=== PATIENT | male | born 1955 | race Caucasian/White ===

== ENCOUNTER 2020-01-27 10:06 | Outpatient (REF) | payer OTHER, SELFPAY ==
[2020-01-27 11:19] LABS: MANUAL DIFF FLAG NO
[2020-01-27 11:24] LABS: Basophils Absolute Auto 0.1 X10*3/uL (0.0-0.2); Basophils Percent Auto 0.6 % (0-2); Eosinophils Absolute Auto 0.2 X10*3/uL (0.0-0.4); Eosinophils Percent Auto 2.1 % (0-4); Hematocrit 45.3 % (42-52); Hemoglobin 15.4 g/dl (14.0-18.0); Imm Gran Abs Auto 0.03 X10*3/uL (0.00-0.03); Imm Gran Pct Auto 0.3 % (0.0-0.4); Lymphocytes Absolute Auto 1.7 X10*3/uL (1.2-4.9); Lymphocytes Percent Auto 19.4 % (20-40); Mean Corpuscular Hemoglobin 30.1 pg (27.0-33.0); Mean Corpuscular Volume 88.5 fL (80-98); Mean Platelet Volume 12.1 fL (9.4-12.4); Monocytes Absolute Auto 0.7 X10*3/uL (0.1-1.2); Monocytes Percent Auto 8.4 % (2-11); Neutrophils Percent Auto 69.2 % (45-73); Platelet Count 216 X10*3/uL (160-400); Red Blood Count 5.12 X10*6/uL (4.60-5.80); Red Cell Distribution Width 13.7 % (11.0-16.0); White Blood Count 8.6 X10*3/uL (4.8-10.8)
[2020-01-27 11:54] LABS: Alanine Aminotransferase 20 U/L (0-40); Albumin Level 4.1 g/dL (3.5-5.0); Alkaline Phosphatase 87 U/L (39-117); Anion Gap 12 (12-20); Aspartate Amino Transferase 21 U/L (5-37); Bilirubin Total 0.7 mg/dL (0.0-1.0); Blood Urea Nitrogen 20 mg/dL (9-16); Calcium 8.8 mg/dL (8.4-10.2); Carbon Dioxide 31 mmol/L (22-29); Chloride 101 mmol/L (96-108); Cholesterol 238 mg/dL; Estimated Glomerular Filt Rate > 60; Glucose Random 90 mg/dL (60-115); HDL Cholesterol 41 mg/dL; LDL Cholesterol Calculated 154 mg/dl; Potassium 3.6 mmol/l (3.3-5.1); Sodium 140 mmol/L (135-145); Total Protein 7.3 g/dL (6.5-8.0); Triglycerides 219 mg/dL
[2020-01-27 12:14] LABS: Folate 14.7 ng/mL (> or = 4.0); Vitamin B12 601 pg/mL (200-900)
[2020-01-27 12:16] LABS: Free T4 (Free Thyroxine) 1.01 ng/dL (0.71-1.85); Prostate Specific Antigen Scr 1.31 ng/mL (<0.05-4.0); Thyroid Stimulating Hormone 1.83 uIU/mL (0.32-4.0)
== END 2020-01-27 10:07 | disposition home or self-care (01) ==
LOC: HO.HMGCLDS 10:06
PROVIDERS: PCP Internal Medicine; Visit Provider Internal Medicine
DX: E78.00 Pure hypercholesterolemia, unspecified (principal); I10 Essential (primary) hypertension
CPT/HCPCS: 36415; 80053; 80061; 82607; 82746; 84153; 84439; 84443; 85025

== ENCOUNTER 2020-07-24 09:21 | Day surgery (SDC) | payer OTHER, SELFPAY ==
[2020-07-17 14:17] VITALS: BMI 31.2
--- NOTE | 2020-07-19 12:16 | P.CONAN_ITS ---
HPI - Anesthesia Eval Consult details Narrative: 65yo M for Colonoscopy PMFSH Active Problems Active Problems: All Active Problems (Updated 07/17/20 @ 14:19 by Alaina Henry) Annual physical exam (Acute) Colon cancer screening (Acute) Hypercholesterolemia (Acute) Hypertension (Acute) Obesity (BMI 30-39.9) (Acute) Past Medical History Medical History (Updated 07/17/20 @ 14:19 by Alaina Henry) Cholelithiasis COVID-19 vaccine administered Fatty liver History of renal calculi Hypercholesterolemia Hypertension Obesity (BMI 30-39.9) Family History Family History (Updated 01/10/20 @ 12:21 by Patricia Gregg Vega) Father Bladder cancer Hypertension Mother CVD (cardiovascular disease) Surgical History Surgical History (Updated 07/17/20 @ 14:18 by Alaina Henry) H/O colonoscopy History of inguinal hernia repair Social History Social History (Updated 01/13/20 @ 09:35 by Yaneth Dickey MD) Are you a primary health care legal assistant to a significant other at home: No Do you presently have visiting nurse or other home services: No Alcohol intake: never Use of substances other than those prescribed or required for medical reasons: No Have you been hit, kicked, punched, or otherwise hurt by someone within the past year? If so, by whom?: No Are you DNR?: No Advance Directives Information Provided: No Recently lost weight without trying: No Eating poorly because of decreased appetite: No Nutrition Risks: No Nutritional Risk Poor oral hygiene: No Meds Allergies Allergy/AdvReac Type Severity Reaction Status Date / Time atorvastatin [Lipitor] Allergy Intermediate myalgia, Verified 07/17/20 14:21 dizziness Home Medications Medication Instructions Recorded Confirmed Last Taken Type cholecalciferol (vitamin D3) 25 25 mcg PO DAILY 01/13/20 07/17/20 Unknown H istory mcg (1,000 unit) capsule multivitamin 1 tab PO DAILY 01/13/20 07/17/20 Unknown History Exam Exam Date and Time: July 19, 2020 1216 Height,Weight and Vital Signs: Height 6 ft 1 in Weight 107.501 kg Assessment and Plan Assessment Anesthesia Assessment: Chart Reviewed
[2020-07-24 09:38] VITALS: BP 170/93; PULSE 86; RESP 16; TEMP 36.6; O2SAT 97
[2020-07-24] MEDS: Lactated Ringers 1,000 ML 100 ML IVCONT (09:48)
--- NOTE | 2020-07-24 09:57 | MHC.SHP ---
Pre-Procedural Eval Section A The patient is an INPATIENT: No Changes since office visit: No Cold of Flu in the past 2 weeks, No New Medical Problems, No Changes in Medication and No Patient answered all questions The History & Physical has been completed within 30 days and I have reviewed it.: Yes Section B Chief Complaint: screening Allergies: Allergies Allergy/AdvReac Type Severity Reaction Status Date / Time atorvastatin [Lipitor] Allergy Intermediate myalgia, Verified 07/17/20 14:21 dizziness Plan I have reviewed the history and physical and performed a pertinent physical examination on my patient. No changes have occurred unless specified.
--- NOTE | 2020-07-24 10:29 | PM.OP ---
Brief Operative Note Date of Service: 07/24/20 Pre-op diagnosis: screening Post-op diagnosis: same Surgeon: Terell Mckeon Anesthesia: MAC Was an Ornamental Machine Operator used for this Procedure?: No Estimated blood loss (mL): 0 Pathology: none sent Condition: stable Disposition: PACU
[2020-07-24 10:32] VITALS: BP 97/60; PULSE 66; RESP 16; TEMP 36.4; O2SAT 95
[2020-07-24 10:47] VITALS: BP 122/74; PULSE 64; RESP 17; TEMP 36.4; O2SAT 96
--- NOTE | 2020-07-24 20:39 | OP_ITS ---
SURGEON: Terell Mckeon MD INDICATIONS: Colon cancer screening. PREOPERATIVE DIAGNOSIS: POSTOPERATIVE DIAGNOSIS: PROCEDURE PERFORMED: Colonoscopy to the terminal ileum. ESTIMATED BLOOD LOSS: COMPLICATIONS: ANESTHESIA: ASSISTANTS: SPECIMENS: MEDICATIONS: Monitored anesthesia care. DESCRIPTION OF PROCEDURE: History and physical performed. The risks and benefits of the procedure were explained to the patient. Informed consent was obtained. The patient was placed in the left lateral decubitus position. A digital rectal exam was performed and was found to be normal. The Olympus pediatric video colonoscope was introduced into the rectum and advanced to the cecum without difficulty. The cecum was identified by transillumination, palpation, and identification of ileocecal valve. Examination was performed and the scope was removed. He tolerated the procedure well and was taken to recovery area in stable condition. FINDINGS: The terminal ileum was normal. The visualized colonic mucosa was normal. The quality of the prep was good. No polyps were identified. There was mild sigmoid diverticulosis with scattered diverticulosis in the descending colon as well. Retroflexed examination showed large internal hemorrhoids. IMPRESSION: Normal colonoscopy, diverticulosis. RECOMMENDATIONS: 1. Follow up as needed. 2. Repeat colonoscopy is recommended in 10 years for average risk individuals. MD IONA Pascual/ABDULAZIZ / [phone]
== END 2020-07-24 11:04 | disposition home or self-care (01) ==
PROVIDERS: PCP Internal Medicine; Visit Provider Internal Medicine Gastroenterology
PROC: 0DJD8ZZ Inspection of Lower Intestinal Tract, Via Natural or Artificial Opening Endoscopic (ICD-10-PCS; CPT 45378; principal; 2020-07-24 10:30)
DX: Z12.11 Encounter for screening for malignant neoplasm of colon (principal); K57.30 Diverticulosis of large intestine without perforation or abscess without bleeding; K64.8 Other hemorrhoids; K76.0 Fatty (change of) liver, not elsewhere classified; I10 Essential (primary) hypertension; E78.00 Pure hypercholesterolemia, unspecified; Z79.899 Other long term (current) drug therapy; Z87.442 Personal history of urinary calculi
CPT/HCPCS: 45378

== ENCOUNTER 2021-05-29 09:15 | Outpatient (REF) | payer OTHER, SELFPAY ==
[2021-05-29 11:23] LABS: MANUAL DIFF FLAG NO
[2021-05-29 11:44] LABS: Basophils Absolute Auto 0.1 X10*3/uL (0.0-0.2); Eosinophils Absolute Auto 0.1 X10*3/uL (0.0-0.4); Eosinophils Percent Auto 2.1 % (0-4); Hematocrit 44.1 % (42.0-52.0); Hemoglobin 15.4 g/dl (14.0-18.0); Imm Gran Abs Auto 0.01 X10*3/uL (0.00-0.03); Imm Gran Pct Auto 0.2 % (0.0-0.4); Lymphocytes Absolute Auto 1.6 X10*3/uL (1.2-4.9); Lymphocytes Percent Auto 26.1 % (20-40); Mean Corpuscular HGB Conc 34.9 g/dl (31.0-36.0); Mean Corpuscular Hemoglobin 30.8 pg (27.0-33.0); Mean Corpuscular Volume 88.2 fL (80.0-98.0); Mean Platelet Volume 12.6 fL (9.4-12.4); Monocytes Absolute Auto 0.6 X10*3/uL (0.1-1.2); Monocytes Percent Auto 9.6 % (2-11); Neutrophils Absolute Auto 3.8 x10*3/uL (2.0-8.3); Platelet Count 221 X10*3/uL (160-400); White Blood Count 6.3 X10*3/uL (4.8-10.8)
[2021-05-29 11:55] LABS: Alanine Aminotransferase 21 U/L (0-40); Albumin Level 4.1 g/dL (3.5-5.0); Alkaline Phosphatase 80 U/L (39-117); Anion Gap 11 (12-20); Aspartate Amino Transferase 22 U/L (5-37); Bilirubin Total 0.5 mg/dL (0.0-1.0); Blood Urea Nitrogen 18 mg/dL (9-16); Calcium 9.4 mg/dL (8.4-10.2); Carbon Dioxide 31 mmol/L (22-29); Chloride 101 mmol/L (96-108); Cholesterol 225 mg/dL; Estimated Glomerular Filt Rate > 60; Glucose Random 94 mg/dL (60-115); HDL Cholesterol 43 mg/dL; LDL Cholesterol Calculated 166 mg/dl; Potassium 3.4 mmol/L (3.3-5.1); Sodium 140 mmol/L (135-145); Total Protein 7.3 g/dL (6.5-8.0); Triglycerides 84 mg/dL
[2021-05-29 12:12] LABS: Free T4 (Free Thyroxine) 1.21 ng/dL (0.71-1.85); Prostate Specific Antigen Scr 1.27 ng/mL (<0.05-4.0); Thyroid Stimulating Hormone 2.25 uIU/mL (0.32-4.0)
[2021-05-29 12:27] LABS: Folate 18.1 ng/mL (> or = 4.0); Vitamin B12 596 pg/mL (200-900)
== END 2021-05-29 09:16 | disposition home or self-care (01) ==
LOC: HO.HMGCLDS 09:15
PROVIDERS: Visit Provider Internal Medicine
DX: I10 Essential (primary) hypertension (principal); E78.00 Pure hypercholesterolemia, unspecified; Z12.5 Encounter for screening for malignant neoplasm of prostate
CPT/HCPCS: 36415; 80053; 80061; 82607; 82746; 84153; 84439; 84443; 85025

== ENCOUNTER 2022-02-14 13:02 | Emergency (ER) | payer MEDICARE, SELFPAY ==
[2022-02-14 13:13] VITALS: BP 172/83; PULSE 100; RESP 18; TEMP 36.8; O2SAT 98; BMI 30.3
--- NOTE | 2022-02-14 13:15 | ED.GENADULT ---
HPI - General Adult General Chief complaint: General Medical <JOSELYN Dinero - Last Filed: 02/14/22 13:18> Stated complaint: pain in R side <JOSELYN Dinero - Last Filed: 02/14/22 13:18> Time Seen by Provider: 02/14/22 15:40 <JOSELYN Dinero - Last Filed: 02/14/22 13:18> Source: patient <Jaylin Hernandez MD - Last Filed: 02/14/22 17:13> Mode of arrival: ambulatory <Jaylin Hernandez MD - Last Filed: 02/14/22 17:13> History of Present Illness HPI narrative: 67-year-old male who presents with complaints of right posterior back pain as well as urinary symptoms but denies any nausea, vomiting, fever, chills and states that he is just recently completed a course of cefuroxime as well as treatment for suspected renal colic through [facility]. Patient also states that he has been experiencing some dizziness 1st thing in the morning but suspects that this is secondary to the Flomax that he takes at night before bed. <Jaylin Hernandez MD - Last Filed: 02/14/22 17:13> Related Data Home medications: Home Medications Medication Instructions Recorded Confirmed cholecalciferol (vitamin D3) 25 25 mcg PO DAILY 01/13/20 05/17/21 mcg (1,000 unit) capsule multivitamin 1 tab PO DAILY 01/13/20 05/17/21 Previous Rx's Medication Instructions Recorded hydrochlorothiazide 25 mg tablet 25 mg PO DAILY #90 tabs 05/17/21 nirmatrelvir 300 mg (150 mg See Rx Instructions PO .COMPLEX 06/19/21 x2)-ritonavir 100 mg tablet,dose #30 tabs pack(EUA) (Paxlovid) cefuroxime axetil 250 mg tablet 250 mg PO BID 7 days #14 tabs 02/04/22 prednisone 20 mg tablet 20 mg PO DAILY 5 days #5 tabs 02/04/22 tamsulosin 0.4 mg capsule (Flomax) 0.4 mg PO DAILY #14 caps 02/04/22 cefdinir 300 mg capsule 300 mg PO BID 7 days #14 caps 02/14/22 <JOSELYN Dinero - Last Filed: 02/14/22 13:18> Allergies/adverse reactions: Allergies Allergy/AdvReac Type Severity Reaction Status Date / Time atorvastatin [Lipitor] Allergy Intermediate myalgia, Verified 05/17/21 16:15 dizziness <JOSELYN Dinero - Last Filed: 02/14/22 13:18> Review of Systems Review of Systems: Pertinent positives and negatives as stated in HPI 10 point review systems is otherwise negative. <Jaylin Hernandez MD - Last Filed: 02/14/22 17:13> [facility] Past Medical History Source: nursing notes reviewed <Jaylin Hernandez MD - Last Filed: 02/14/22 17:13> Medical History: Medical History Cholelithiasis COVID-19 vaccine administered Fatty liver History of renal calculi Hypercholesterolemia Hypertension Obesity (BMI 30-39.9) <JOSELYN Dinero - Last Filed: 02/14/22 13:18> Surgical History: Surgical History H/O colonoscopy History of inguinal hernia repair <JOSELYN Dinero - Last Filed: 02/14/22 13:18> Family History Family History: Family History Father Bladder cancer Hypertension Mother CVD (cardiovascular disease) <JOSELYN Dinero - Last Filed: 02/14/22 13:18> Social History Social History: Social History Housing: House Are you a primary personal carer to a significant other at home: No Do you presently have visiting nurse or other home services: No Alcohol intake: never Patient Tobacco Use Status: Never used Tobacco e-Cigarette/Vaping Use: Never Used Second Hand Smoke Exposure: No Advance Directives: No Advance Directives Information Provided: Yes Current occupational status: retired Cognitive needs: No Hearing needs: No Vision needs: Yes <JOSELYN Dinero - Last Filed: 02/14/22 13:18> Physical Exam ED Vital Signs: Vital Signs - 24 hr 02/14/22 13:13 02/14/22 15:56 Temperature 98.2 F 98.4 F Pulse Rate 100 96 Respiratory Rate 18 16 Blood Pressure 172/83 H 143/93 H Pulse Oximetry 98 98 Oxygen Delivery Method Room Air Room Air BMI result Body Mass Index 30.3 <JOSELYN Dinero - Last Filed: 02/14/22 13:18> Vital Signs - 24 hr 02/14/22 13:13 02/14/22 15:56 Temperature 98.2 F 98.4 F Pulse Rate 100 96 Respiratory Rate 18 16 Blood Pressure 172/83 H 143/93 H Pulse Oximetry 98 98 Oxygen Delivery Method Room Air Room Air BMI result Body Mass Index 30.3 VITAL SIGNS: Reviewed. GENERAL: Well developed, well nourished, in no acute distress. HEAD: Normocephalic/atraumatic EYES: PERRLA, EOMI EARS: Ext canals without abnormality OROPHARYNX: no oral lesions noted, posterior pharynx clear LUNGS: Normal breath sounds. No adventitious sounds or accessory muscle use. SpO2<98> CARDIOVASCULAR: Regular rate and rhythm without noted murmur ABDOMEN: Soft, non-tender, non-distended with bowel sounds, CVA tenderness MUSCULOSKELETAL: No tenderness, deformities, or effusions noted on gross inspection. EXTREMITIES: No cyanosis, clubbing or edema. SKIN: Inspection of the skin reveals no rashes NEUROLOGIC: Alert and oriented x 4. Strength and sensation to light touch were grossly intact x 4. <Jaylin Hernandez MD - Last Filed: 02/14/22 17:13> Course Course Course Narrative: RME - 67 yo male with history of kidney stones 30 years ago presents to the ER with intermittent right flank pain for the last 5 days. He had acute painless hematuria on 02/04, seen at [facility] and treated with prednisone, flomax and abx. Told his urine had no infection but he may have a kidney stone. No fever, chills, N/V and no urinary symptoms. He has been dizzy the last few mornings and having some generalized weakness as well. BP elevated 170s systolic but he appears well, no distress. Labs and dry CT ordered. Plan per provider in the Main ED. <JOSELYN Dinero - Last Filed: 02/14/22 13:18> RME - 67 yo male with history of kidney stones 30 years ago presents to the ER with intermittent right flank pain for the last 5 days. He had acute painless hematuria on 02/04, seen at [facility] and treated with prednisone, flomax and abx. Told his urine had no infection but he may have a kidney stone. No fever, chills, N/V and no urinary symptoms. He has been dizzy the last few mornings and having some generalized weakness as well. BP elevated 170s systolic but he appears well, no distress. Labs and dry CT ordered. Plan per provider in the Main ED. 67-year-old male with history and clinical presentation after review of all investigations appears to be a possible mild pyelonephritis, as patient persists in having leukocyte esterase and white blood cell in his urine as well as CVA pain/tenderness. There are no findings on clinical exam or labs to suggest cholecystitis or pancreatitis let alone pneumonia. All results discussed with him at bedside and he will be discharged home on cefdinir for 1 week. <Jaylin Hernandez MD - Last Filed: 02/14/22 17:13> Medical Decision Making Medical Decision Making [facility] Narrative: 67-year-old male with history and clinical presentation consistent with intermittent right flank pain started on Thursday. <Jaylin Hernandez MD - Last Filed: 02/14/22 17:13> Differential Diagnosis Differential Diagnoses: The differential diagnosis associated with the presentation includes <Jaylin Hernandez MD - Last Filed: 02/14/22 17:13> Renal colic, cholecystitis, pyelonephritis, <Jaylin Hernandez MD - Last Filed: 02/14/22 17:13> Lab Data [facility] Lab Attestation statement: I reviewed the patient's lab results. <Jaylin Hernandez MD - Last Filed: 02/14/22 17:13> Result Diagrams: : 02/14/22 13:39 02/14/22 13:39 <JOSELYN Dinero - Last Filed: 02/14/22 13:18> Labs: Lab Results 02/14/22 02/14/22 02/14/22 Range/Units 13:39 13:39 13:41 WBC 7.2 (4.8-10.8) X10*3/uL RBC 5.20 (4.60-5.80) X10*6/uL Hgb 15.6 (14.0-18.0) g/dl Hct 46.2 (42.0-52.0) % MCV 88.8 (80.0-98.0) fL MCH 30.0 (27.0-33.0) pg MCHC 33.8 (31.0-36.0) g/dl RDW 13.2 (11.0-16.0) % Plt Count 261 (160-400) X10*3/uL MPV 10.9 (9.4-12.4) fL Immature Gran % (Auto) 0.4 (0.0-0.4) % Neut % (Auto) 78.2 H (45-73) % Lymph % (Auto) 14.9 L (20-40) % [place] % (Auto) 5.7 (2-11) % Eos % (Auto) 0.1 (0-4) % Baso % (Auto) 0.7 (0-2) % Lymph # (Auto) 1.1 L (1.2-4.9) X10*3/uL [place] # (Auto) 0.4 (0.1-1.2) X10*3/uL Eos # (Auto) 0.0 (0.0-0.4) X10*3/uL Baso # (Auto) 0.1 (0.0-0.2) X10*3/uL Abs Immat Gran (auto) 0.03 (0.00-0.03) X10*3/uL Absolute Neuts (auto) 5.7 (2.0-8.3) x10*3/uL Absolute Nucleated RBC 0.000 (0.0-0.012) X10*3/uL Nucleated RBC % (auto) 0.0 (0.0-0.2) /100WBC Sodium 138 (135-145) mmol/L Potassium 3.8 (3.3-5.1) mmol/L Chloride 102 (96-108) mmol/L Carbon Dioxide 27 (22-29) mmol/L Anion Gap 13 (12-20) BUN 20 H (9-16) mg/dL Creatinine 1.26 (0.5-1.4) mg/dL Estim Creat Clear Calc 71.1 Estimated GFR 57 Random Glucose 138 H (60-115) mg/dL Calcium 9.2 (8.4-10.2) mg/dL Magnesium 2.0 (1.6-2.6) mg/dL Total Bilirubin 0.3 (0.0-1.0) mg/dL Direct Bilirubin < 0.2 (0.0-0.5) mg/dL AST 22 (5-37) U/L ALT 26 (0-40) U/L Alkaline Phosphatase 91 (39-117) U/L Total Protein 7.1 (6.5-8.0) g/dL Albumin 3.9 (3.5-5.0) g/dL Urine Color Yellow Urine Appearance Clear Urine pH 7.5 (5.0-9.0) Ur Specific [place] 1.020 (1.005-1.025) Urine Protein Trace (Neg-Trace) mg/dL Urine Glucose (UA) Negative (Negative) mg/dL Urine Ketones Negative (Negative) mg/dL Urine Blood Negative (Negative) Urine Nitrite Negative (Negative) Ur Leukocyte Esterase Small (1+) H (Negative) Urine RBC 0-2 (0-2) /HPF Urine WBC 21-50 H (0-5) /HPF Ur Squamous Epith Cells 6-10 (0-2) /HPF Urine Bacteria None Seen (None Seen) Hyaline Casts 0-2 (0-2) /LPF <JOSELYN Dinero - Last Filed: 02/14/22 13:18> Lab Results 02/14/22 02/14/22 02/14/22 Range/Units 13:39 13:39 13:41 WBC 7.2 (4.8-10.8) X10*3/uL RBC 5.20 (4.60-5.80) X10*6/uL Hgb 15.6 (14.0-18.0) g/dl Hct 46.2 (42.0-52.0) % MCV 88.8 (80.0-98.0) fL MCH 30.0 (27.0-33.0) pg MCHC 33.8 (31.0-36.0) g/dl RDW 13.2 (11.0-16.0) % Plt Count 261 (160-400) X10*3/uL MPV 10.9 (9.4-12.4) fL Immature Gran % (Auto) 0.4 (0.0-0.4) % Neut % (Auto) 78.2 H (45-73) % Lymph % (Auto) 14.9 L (20-40) % [place] % (Auto) 5.7 (2-11) % Eos % (Auto) 0.1 (0-4) % Baso % (Auto) 0.7 (0-2) % Lymph # (Auto) 1.1 L (1.2-4.9) X10*3/uL [place] # (Auto) 0.4 (0.1-1.2) X10*3/uL Eos # (Auto) 0.0 (0.0-0.4) X10*3/uL Baso # (Auto) 0.1 (0.0-0.2) X10*3/uL Abs Immat Gran (auto) 0.03 (0.00-0.03) X10*3/uL Absolute Neuts (auto) 5.7 (2.0-8.3) x10*3/uL Absolute Nucleated RBC 0.000 (0.0-0.012) X10*3/uL Nucleated RBC % (auto) 0.0 (0.0-0.2) /100WBC Sodium 138 (135-145) mmol/L Potassium 3.8 (3.3-5.1) mmol/L Chloride 102 (96-108) mmol/L Carbon Dioxide 27 (22-29) mmol/L Anion Gap 13 (12-20) BUN 20 H (9-16) mg/dL Creatinine 1.26 (0.5-1.4) mg/dL Estim Creat Clear Calc 71.1 Estimated GFR 57 Random Glucose 138 H (60-115) mg/dL Calcium 9.2 (8.4-10.2) mg/dL Magnesium 2.0 (1.6-2.6) mg/dL Total Bilirubin 0.3 (0.0-1.0) mg/dL Direct Bilirubin < 0.2 (0.0-0.5) mg/dL AST 22 (5-37) U/L ALT 26 (0-40) U/L Alkaline Phosphatase 91 (39-117) U/L Total Protein 7.1 (6.5-8.0) g/dL Albumin 3.9 (3.5-5.0) g/dL Urine Color Yellow Urine Appearance Clear Urine pH 7.5 (5.0-9.0) Ur Specific [place] 1.020 (1.005-1.025) Urine Protein Trace (Neg-Trace) mg/dL Urine Glucose (UA) Negative (Negative) mg/dL Urine Ketones Negative (Negative) mg/dL Urine Blood Negative (Negative) Urine Nitrite Negative (Negative) Ur Leukocyte Esterase Small (1+) H (Negative) Urine RBC 0-2 (0-2) /HPF Urine WBC 21-50 H (0-5) /HPF Ur Squamous Epith Cells 6-10 (0-2) /HPF Urine Bacteria None Seen (None Seen) Hyaline Casts 0-2 (0-2) /LPF <Jaylin Hernandez MD - Last Filed: 02/14/22 17:13> Radiology Impression Radiologist Impression: My interpretation is consistent with radiology's impression of imaging. <Jaylin Hernandez MD - Last Filed: 02/14/22 17:13> External Record Review External record reviewed: Outpatient record <Jaylin Hernandez MD - Last Filed: 02/14/22 17:13> Discharge Plan Discharge Clinical Impression: Pyelonephritis <JOSELYN Dinero - Last Filed: 02/14/22 13:18> Patient Disposition: Home, Self-Care <JOSELYN Dinero - Last Filed: 02/14/22 13:18> Instructions: Kidney Infection (ED) <JOSELYN Dinero - Last Filed: 02/14/22 13:18> Additional Instructions: 1. Resume all home medications as prescribed. Stop taking the Flomax. 2. Complete the entire course of antibiotics as ordered. Increase the amount of water that you drink. 3. Follow-up with primary care provider in the next 3-4 days. Return to the ER for worsening symptoms. <JOSELYN Dinero - Last Filed: 02/14/22 13:18> Prescriptions: New cefdinir 300 mg capsule 300 mg PO BID 7 Days Qty: 14 0RF No Action Paxlovid (EUA) 150 mg x 2- 100 mg tablet See Rx Instructions PO .COMPLEX Qty: 30 0RF Rx Instructions: take TWO 150 mg tablets of nirmatrelvir with ONE 100 mg tablet of ritonavir twice daily for 5 days PO cholecalciferol (vitamin D3) 25 mcg (1,000 unit) capsule 25 mcg PO DAILY multivitamin Tablet 1 tab PO DAILY hydrochlorothiazide 25 mg tablet 25 mg PO DAILY Qty: 90 3RF cefuroxime axetil 250 mg tablet 250 mg PO BID 7 Days Qty: 14 0RF prednisone 20 mg tablet 20 mg PO DAILY 5 Days Qty: 5 0RF tamsulosin [Flomax] 0.4 mg capsule 0.4 mg PO DAILY Qty: 14 0RF <JOSELYN Dinero - Last Filed: 02/14/22 13:18> Referrals: Po,Yaneth Feliz MD [Primary Care Provider] - <JOSELYN Dinero - Last Filed: 02/14/22 13:18>
[2022-02-14 13:46] LABS: MANUAL DIFF FLAG NO
[2022-02-14 13:48] LABS: Basophils Absolute Auto 0.1 X10*3/uL (0.0-0.2); Basophils Percent Auto 0.7 % (0-2); Eosinophils Percent Auto 0.1 % (0-4); Hematocrit 46.2 % (42.0-52.0); Hemoglobin 15.6 g/dl (14.0-18.0); Imm Gran Abs Auto 0.03 X10*3/uL (0.00-0.03); Imm Gran Pct Auto 0.4 % (0.0-0.4); Lymphocytes Absolute Auto 1.1 X10*3/uL (1.2-4.9); Lymphocytes Percent Auto 14.9 % (20-40); Mean Corpuscular HGB Conc 33.8 g/dl (31.0-36.0); Mean Corpuscular Volume 88.8 fL (80.0-98.0); Mean Platelet Volume 10.9 fL (9.4-12.4); Monocytes Absolute Auto 0.4 X10*3/uL (0.1-1.2); Monocytes Percent Auto 5.7 % (2-11); Neutrophils Absolute Auto 5.7 x10*3/uL (2.0-8.3); Neutrophils Percent Auto 78.2 % (45-73); Platelet Count 261 X10*3/uL (160-400); Red Cell Distribution Width 13.2 % (11.0-16.0); White Blood Count 7.2 X10*3/uL (4.8-10.8)
[2022-02-14 13:50] LABS: Appearance Urine Clear; Color Urine Yellow; Glucose Urine UA Negative (Negative); Leukocyte Esterase Urine Small (1+) (Negative); Nitrite Urine Negative (Negative); PH 7.5 (5.0-9.0); UMIC TRIGGER UACC YES; Urine Blood Negative (Negative); Urine Ketones Negative (Negative); Urine Protein Trace mg/dL (Neg-Trace)
[2022-02-14 13:53] LABS: Bacteria Urine None Seen (None Seen); Hyaline Casts Urine 0-2 /LPF (0-2); RBC Urine 0-2 /HPF (0-2); UACC Culture Trigger YES; WBC Urine 21-50 /HPF (0-5)
[2022-02-14 14:04] LABS: Alanine Aminotransferase 26 U/L (0-40); Albumin Level 3.9 g/dL (3.5-5.0); Alkaline Phosphatase 91 U/L (39-117); Anion Gap 13 (12-20); Aspartate Amino Transferase 22 U/L (5-37); Bilirubin Direct < 0.2 mg/dL (0.0-0.5); Bilirubin Total 0.3 mg/dL (0.0-1.0); Blood Urea Nitrogen 20 mg/dL (9-16); Calcium 9.2 mg/dL (8.4-10.2); Carbon Dioxide 27 mmol/L (22-29); Chloride 102 mmol/L (96-108); Creatinine Clr Calc Pharmacy 71.1; Estimated Glomerular Filt Rate 57; Glucose Random 138 mg/dL (60-115); Potassium 3.8 mmol/L (3.3-5.1); Sodium 138 mmol/L (135-145); Total Protein 7.1 g/dL (6.5-8.0)
[2022-02-14 15:56] VITALS: BP 143/93; PULSE 96; RESP 16; TEMP 36.9; O2SAT 98
[2022-02-14 17:29] VITALS: BP 169/99; PULSE 94; RESP 16; O2SAT 98
== END 2022-02-14 17:31 | disposition home or self-care (01) ==
PROVIDERS: Physician Assistant; Emergency Provider Student in an Organized Health Care Education/Training Program; PCP Internal Medicine
DX: N10 Acute pyelonephritis (principal); M54.50 Low back pain, unspecified; Z20.822 Contact with and (suspected) exposure to COVID-19; Z79.899 Other long term (current) drug therapy
CPT/HCPCS: 36415; 74176; 80048; 80076; 81001; 83735; 85025; 87086; 87088; 87186; 99283; 99284

== ENCOUNTER 2022-05-21 09:11 | Outpatient (REF) | payer MEDICARE, SELFPAY ==
[2022-05-21 11:25] LABS: Urine Cytology See Pathology rpt
[2022-05-21 11:39] LABS: MANUAL DIFF FLAG NO
[2022-05-21 11:43] LABS: Appearance Urine Clear; Color Urine Yellow; Glucose Urine UA Negative (Negative); Leukocyte Esterase Urine Trace (Negative); Nitrite Urine Negative (Negative); PH 6.5 (5.0-9.0); UMIC TRIGGER UA YES; Urine Blood Negative (Negative); Urine Ketones Negative (Negative); Urine Protein Negative (Neg-Trace)
[2022-05-21 11:46] LABS: Bacteria Urine None Seen (None Seen); Hyaline Casts Urine 0-2 /LPF (0-2); Squamous Epithelial Cell Urine 0-2 /HPF (0-2); WBC Urine 0-5 /HPF (0-5)
[2022-05-21 11:55] LABS: Basophils Absolute Auto 0.1 X10*3/uL (0.0-0.2); Eosinophils Absolute Auto 0.1 X10*3/uL (0.0-0.4); Hematocrit 46.6 % (42.0-52.0); Hemoglobin 16.1 g/dl (14.0-18.0); Imm Gran Abs Auto 0.01 X10*3/uL (0.00-0.03); Imm Gran Pct Auto 0.1 % (0.0-0.4); Lymphocytes Absolute Auto 1.9 X10*3/uL (1.2-4.9); Lymphocytes Percent Auto 27.5 % (20-40); Mean Corpuscular HGB Conc 34.5 g/dl (31.0-36.0); Mean Corpuscular Hemoglobin 30.7 pg (27.0-33.0); Mean Corpuscular Volume 88.8 fL (80.0-98.0); Mean Platelet Volume 12.4 fL (9.4-12.4); Monocytes Absolute Auto 0.7 X10*3/uL (0.1-1.2); Monocytes Percent Auto 9.5 % (2-11); Neutrophils Absolute Auto 4.1 x10*3/uL (2.0-8.3); Neutrophils Percent Auto 59.9 % (45-73); Platelet Count 250 X10*3/uL (160-400); Red Blood Count 5.25 X10*6/uL (4.60-5.80); Red Cell Distribution Width 13.5 % (11.0-16.0); White Blood Count 6.9 X10*3/uL (4.8-10.8)
[2022-05-21 12:16] LABS: Alanine Aminotransferase 21 U/L (0-40); Albumin Level 4.1 g/dL (3.5-5.0); Alkaline Phosphatase 92 U/L (39-117); Anion Gap 13 (12-20); Aspartate Amino Transferase 23 U/L (5-37); Bilirubin Total 0.6 mg/dL (0.0-1.0); Blood Urea Nitrogen 14 mg/dL (9-16); Calcium 9.2 mg/dL (8.4-10.2); Carbon Dioxide 29 mmol/L (22-29); Chloride 102 mmol/L (96-108); Cholesterol 231 mg/dL; Estimated Glomerular Filt Rate 58; Glucose Random 93 mg/dL (60-115); HDL Cholesterol 45 mg/dL; LDL Cholesterol Calculated 169 mg/dl; Potassium 3.3 mmol/L (3.3-5.1); Sodium 141 mmol/L (135-145); Total Protein 7.1 g/dL (6.5-8.0); Triglycerides 86 mg/dL
[2022-05-21 12:45] LABS: Folate 19.9 ng/mL (> or = 4.0); Free T4 (Free Thyroxine) 1.19 ng/dL (0.71-1.85); Prostate Specific Antigen Scr 1.65 ng/mL (<0.05-4.0); Thyroid Stimulating Hormone 2.39 uIU/mL (0.32-4.0); Vitamin B12 932 pg/mL (200-900)
== END 2022-05-21 09:12 | disposition home or self-care (01) ==
LOC: HO.HMGCLDS 09:11
PROVIDERS: PCP Internal Medicine; Visit Provider Internal Medicine
DX: Z12.5 Encounter for screening for malignant neoplasm of prostate (principal); E78.00 Pure hypercholesterolemia, unspecified; Z87.440 Personal history of urinary (tract) infections
CPT/HCPCS: 36415; 80053; 80061; 81001; 82607; 82746; 84153; 84439; 84443; 85025; 88112

== ENCOUNTER → 2022-06-25 08:53 | Outpatient (BNVA) | payer MEDICARE, SELFPAY | PROVIDERS: PCP Internal Medicine; Visit Provider Nurse Practitioner Family | DX: R33.9 Retention of urine, unspecified (principal); N39.0 Urinary tract infection, site not specified | CPT/HCPCS: 51798; 99202 ==

== ENCOUNTER 2022-07-30 09:47 | Outpatient (REF) | payer MEDICARE, SELFPAY ==
--- NOTE | ~2022-07-30 | US_ITS ---
EXAMINATION: US RETROPERITONEAL COMPLETE (RENAL) CLINICAL INFORMATION: Retention of urine, unspecified. COMPARISON: CT abdomen and pelvis 02/14/2022. Ultrasound abdomen complete 05/04/2017. TECHNIQUE: Real-time imaging of the kidneys and bladder. FINDINGS: RIGHT KIDNEY: 12.1 x 6.4 x 5.9 cm (SAG x AP x TRV). The kidney is normal in size, contour, and echogenicity. Renal cortical thickness is normal. No calculi or focal parenchymal lesions. No hydronephrosis. Mild calyectasis. LEFT KIDNEY: 11.0 x 4.8 x 5.4 cm (SAG x AP x TRV). The kidney is normal in size, contour, and echogenicity. Renal cortical thickness is normal. No renal calculi or hydronephrosis. Mild calyectasis. Simple cyst in the midpole measuring 2 cm for which no imaging follow-up is recommended. BLADDER: Well-distended with 3 diverticuli, largest measuring up to 4.3 cm. Bilateral ureteral jets are demonstrated. Prevoid bladder volume is 310 mL. Postvoid bladder volume is 35 mL. ADDITIONAL FINDINGS: Prostate volume 42 mL. US/US retroperitoneal comp IMPRESSION: 1. Mild bilateral calyectasis without joel hydronephrosis. 2. Urinary bladder diverticula, largest measuring up to 4.3 cm. 3. Enlarged prostate. Post void bladder volume of 35 mL.
== END 2022-07-30 09:48 | disposition home or self-care (01) ==
LOC: HO.HMGCX 09:47
PROVIDERS: PCP Internal Medicine; Visit Provider Nurse Practitioner Family
DX: R33.9 Retention of urine, unspecified (principal); N39.0 Urinary tract infection, site not specified
CPT/HCPCS: 76770

== ENCOUNTER → 2022-08-06 09:40 | Outpatient (BNVA) | payer MEDICARE, SELFPAY | PROVIDERS: PCP Internal Medicine; Visit Provider Nurse Practitioner Family | DX: N39.0 Urinary tract infection, site not specified (principal); N32.3 Diverticulum of bladder; R33.9 Retention of urine, unspecified | CPT/HCPCS: 51798; 99212 ==

== ENCOUNTER 2023-05-26 12:45 | Outpatient (AMB) | payer MEDICARE, SELFPAY ==
[2023-05-26 12:47] VITALS: BP 146/88; PULSE 96; O2SAT 98; BMI 28.8
--- NOTE | 2023-05-26 12:47 | A.OFFPC_ITS ---
Vital Signs 05/26/23 12:47 Height 6 ft 1 in Weight 218 lb 0.6 oz BMI 28.8 BP 146/88 H Blood Pressure Location Lt brachial Position Sitting Pulse 96 Pulse Source Pulse Oximeter Pulse Oximetry (%) 98 Oxygen Delivery Method Room Air Intake Visit Reasons: PE Intake Note: Patient is here today for a physical. Replenishment Specialist Required: No Allergies atorvastatin [Lipitor] Allergy (Intermediate, Verified 05/26/23 12:48) myalgia, dizziness tamsulosin [From Flomax] Adverse Reaction (Verified 05/26/23 12:48) light headed Medication List - Last Reconciled 05/26/23 by Yaneth Dickey MD cholecalciferol (vitamin D3) 25 mcg PO DAILY hydrochlorothiazide 25 mg PO DAILY multivitamin 1 tab PO DAILY Tobacco use date assessed: 05/26/23 Fall risk assessment: No Falls in past year Last assessed Fall Risk: 05/26/23 HPI PE HPI Details 68-year-old obese male with hypertension hypercholesterolemia coming in for physical exam last seen in April 2022. Patient's colonoscopy is up-to-date July 2020. Review of the notes has been seeing Urology for the recurrent UTI diagnosis of incomplete bladder emptying/retention of urine but would like to hold off from further treatment right now. BP at home has been controlled. has 2 dogs and has been exercise. [facility] Medical History (Updated 05/26/23 @ 13:18 by Yaneth Dickey MD) Obesity (BMI 30-39.9) COVID-19 vaccine administered History of renal calculi Fatty liver Cholelithiasis Hypercholesterolemia Hypertension Surgical History H/O colonoscopy History of inguinal hernia repair Family History Father Bladder cancer Hypertension Mother CVD (cardiovascular disease) Social History Housing: House Are you a primary healthcare consultant to a significant other at home: No Do you presently have visiting nurse or other home services: No Alcohol intake: never Patient Tobacco Use Status: Never used Tobacco e-Cigarette/Vaping Use: Never Used Second Hand Smoke Exposure: No Current occupational status: retired Cognitive needs: No Hearing needs: No Vision needs: Yes Questionnaire PHQ-9 Over the last 2 weeks, how often have you been bothered by any of the following problems? 1. Little interest or pleasure in doing things: not at all 2. Feeling down, depressed, or hopeless: not at all 3. Trouble falling or staying asleep, or sleeping too much: not at all 4. Feeling tired or having little energy: not at all 5. Poor appetite or overeating: not at all 6. Feeling bad about yourself - or that you are a failure or have let yourself or your family down: not at all 7. Trouble concentrating on things, such as reading the newspaper or watching television: not at all 8. Moving or speaking so slowly that other people could have noticed. Or the opposite - being so fidgety or restless that you have been moving around a lot more than usual: not at all 9. Thoughts that you would be better off or of hurting yourself in some way: not at all Total score: 0 Depression Screening Interpretation: Negative Depression Screening Done: Yes 87724 - PHQ-9 Billing: Yes Source: Developed by Drs. Jeff Jackson, Kimberly Ramos, Matheus Flores and colleagues, with an educational esperanza from [employer]. Thrive Questionnaire Date Thrive assessed: 05/26/23 I am a: Patient What is your living situation today?: I have a steady place to live Within the past 12 months, did the food you bought not last and you didn't have the money to get more?: Never true Within the past 12 months, did you worry whether your food would run out before you got money to buy more?: Never true Do you have trouble paying for medicines?: No Do you have trouble getting transportation to medical appointments?: No Do you have trouble paying your heating and electricity bill?: No Do you have trouble taking care of your child, family member or friend?: No Do you have trouble with day-to-day activities such as bathing, preparing meals, shopping, managing finances, etc.?: No Are you currently unemployed and looking for a job?: No Are you interested in more education?: No Please select the resources that you would like help with: None Currently or been in a relationship where the following occur: no concerns reported THRIVE Score: 0 AUDIT C Alcohol Use Questionnaire (AUDIT-C) 1. How often do you have a drink containing alcohol?: Monthly or less 2. How many drinks containing alcohol do you have on a typical day when you are drinking?: 1 or 2 3. How often do you have six or more drinks on one occasion?: Never Total Score: 1 HANNY-7 AMB Questionnaire HANNY-7 Date HANNY - 7 assessed: 05/26/23 Feeling nervous, anxious, or on edge: 0 = Not at all Not being able to stop or control worryin = Not at all Worrying too much about different things: 0 = Not at all Trouble relaxin = Not at all Being so restless that it is hard to sit still: 0 = Not at all Becoming easily annoyed or irritable: 0 = Not at all Feeling afraid as if something awful might happen: 0 = Not at all Total HANNY-7 score (0-4 normal; 5-9 mild; 10-14 moderate; 15-21 severe): 0 Source: Developed by Drs. Jeff Jackson, Kimberly Ramos, Matheus Flores and colleagues, with an educational esperanza from [employer]. HANNY-7 Assessment Billing HANNY-7 Assessment Tool: HANNY-7 Assessment 95720 Review of Systems Const Denies poor appetite and Denies weakness Eyes Denies no additional complaints ENT Reports Normal hearing present, Denies dizziness, Denies nasal congestion, Denies tinnitus and Denies sore throat Card Denies chest pain, Denies syncope, Denies rapid heart rate and Denies dyspnea Resp Denies cough and Denies dyspnea GI Denies change in stool character, Reports constipation, Denies diarrhea, Denies nausea and Denies vomiting Denies dysuria and Denies urinary frequency Neuro Reports Normal hearing present, Denies confusion, Denies dizziness, Denies syncope and Denies weakness Psych Denies confusion Physical exam (Primary Care) Vital Signs: Last Vital Signs Pulse 96 05/26/23 12:47 BP 146/88 H 05/26/23 12:47 Pulse Ox 98 05/26/23 12:47 Oxygen Delivery Method Room Air 05/26/23 12:47 BMI result Body Mass Index 28.8 Tobacco/Smoking Status: Tobacco use Status Tobacco use date assessed 05/26/23 05/26/23 12:49 Patient Tobacco Use Status Never used Tobacco 05/26/23 12:49 e-Cigarette/Vaping Use Never Used 05/26/23 12:49 PHQ-9: PHQ-9 Score PHQ-9: Total score 0 05/26/23 13:24 Depression Screening Interpretation: Negative Thrive Assessment: Date of Thrive Assessment Date Thrive assessed 05/26/23 05/26/23 12:49 Currently or been in a relationship where the following occur: no concerns reported Const General: No confusion Orientation/consciousness: No confusion HENMT Head: Yes normocephalic Ears: external ears normal and TM's normal bilaterally Face and sinus: Yes normal facial exam Mouth: moist mucous membranes Throat: Yes tonsils normal Eyes Conjunctivae: conjunctivae normal Pupils: Equal, round and reactive pupils present and Pupil accommodation reflex normal Direct Ophthalmoscopy: normal light reflex Neck Neck: No lymphadenopathy Thyroid: Thyroid normal Chest Chest palpation & inspection: normal inspection of the chest Resp Effort & Inspection: normal respiratory effort and no audible wheezes Auscultation: clear to auscultation bilaterally, no crackles, no wheezes and lung sounds not diminished Cardio Rate: regular rate Rhythm: regular rhythm Peripheral pulses: radial pulses present and dorsalis pedis present GI Other: guaiac negative prostate mild enlarged Palpation (GI): no masses Auscultation: normal bowel sounds and normoactive bowel sounds Male General Exam: Yes normal external exam Skin General skin exam: no rashes or lesions noted Rashes: no rashes Neuro General: No confusion Cranial nerves: Yes Equal, round and reactive pupils present and Yes Normal hearing present Cognition (Neuro): normal cognition Gait exam (Neuro): Normal gait present Motor exam (neuro): 5/5 motor strength present throughout Deep tendon reflexes (DTR's): Right brachioradialis reflex intensity grade: 2+, Left brachioradialis reflex intensity grade: 2+, Right patellar reflex intensity grade: 2+ and Left patellar reflex intensity grade: 2+ Extrem General: No edema Assessment and Plan Assessment & Plan (1) Annual physical exam: Code(s): Z00.00 - Encounter for general adult medical examination without abnormal findings (2) Hypertension: Code(s): I10 - Essential (primary) hypertension Qualifiers: Hypertension type: essential hypertension Qualified Code(s): I10 - Essential (primary) hypertension Plan: Continue with blood pressure medication. Decrease salt intake and exercise presently on hydrochlorothiazide 25 mg once a day (3) Hypercholesterolemia: Code(s): E78.00 - Pure hypercholesterolemia, unspecified Plan: Avoid fried foods, chicken skin, eggs, butter margarine, pastries and meat. Be it pork or beef they have a lot of cholesterol LDL goal of less than 130 and triglyceride of less than 150 (4) Incomplete bladder emptying: Code(s): R33.9 - Retention of urine, unspecified Plan: Patient has met with urologist and presently will continue to monitor. (5) Overweight (BMI 25.0-29.9): Code(s): E66.3 - Overweight Plan: Continue with diet and exercise Orders: Orders Vitamin B12 and Folate Today E78.00 - Pure hypercholesterolemia, unspecified Prostate Specific Antigen Scr Today E78.00 - Pure hypercholesterolemia, unspecified Complete Blood Count Auto Diff Today E78.00 - Pure hypercholesterolemia, unspecified Comprehensive Met. Panel Today E78.00 - Pure hypercholesterolemia, unspecified Free T4 (Free Thyroxine) Today E78.00 - Pure hypercholesterolemia, unspecified Thyroid Stimulating Hormone Today E78.00 - Pure hypercholesterolemia, unspecified Lipid Panel Today E78.00 - Pure hypercholesterolemia, unspecified UA CC w/rflx Micro + Cult Today E78.00 - Pure hypercholesterolemia, unspecified, R30.0 - Dysuria Medications: Refilled hydrochlorothiazide 25 mg PO DAILY 90 tabs 3RF I10 - Essential (primary) hypertension Coding Level of Care Code Est Pt Prev Care >65y(32705) Diagnoses Annual physical exam Z00.00 Essential hypertension I10 Hypertension type: essential hypertension Hypercholesterolemia E78.00 Incomplete bladder emptying R33.9 Overweight (BMI 25.0-29.9) E66.3 Additional Codes HANNY-7 Assessment Billing - HANNY-7 Assessment Tool: HANNY-7 Assessment 66116 ([id number])
== END 2023-05-26 13:39 | disposition home or self-care (01) ==
PROVIDERS: PCP Internal Medicine; Visit Provider Internal Medicine
DX: Z00.00 Encounter for general adult medical examination without abnormal findings (principal); I10 Essential (primary) hypertension; E78.00 Pure hypercholesterolemia, unspecified; R33.9 Retention of urine, unspecified; E66.3 Overweight
CPT/HCPCS: 99397

== ENCOUNTER 2023-07-29 08:21 | Outpatient (REF) | payer MEDICARE, SELFPAY ==
[2023-07-29 10:19] LABS: MANUAL DIFF FLAG NO
[2023-07-29 10:47] LABS: Basophils Absolute Auto 0.1 X10*3/uL (0.0-0.2); Basophils Percent Auto 0.8 % (0-2); Eosinophils Absolute Auto 0.2 X10*3/uL (0.0-0.4); Eosinophils Percent Auto 2.7 % (0-4); Hematocrit 46.2 % (42.0-52.0); Imm Gran Abs Auto 0.01 X10*3/uL (0.00-0.03); Imm Gran Pct Auto 0.2 % (0.0-0.4); Lymphocytes Absolute Auto 1.9 X10*3/uL (1.2-4.9); Lymphocytes Percent Auto 29.9 % (20-40); Mean Corpuscular HGB Conc 34.6 g/dl (31.0-36.0); Mean Corpuscular Hemoglobin 30.9 pg (27.0-33.0); Mean Corpuscular Volume 89.4 fL (80.0-98.0); Monocytes Absolute Auto 0.6 X10*3/uL (0.1-1.2); Monocytes Percent Auto 8.8 % (2-11); Neutrophils Absolute Auto 3.6 x10*3/uL (2.0-8.3); Neutrophils Percent Auto 57.6 % (45-73); Platelet Count 220 X10*3/uL (160-400); Red Blood Count 5.17 X10*6/uL (4.60-5.80); Red Cell Distribution Width 13.6 % (11.0-16.0); White Blood Count 6.3 X10*3/uL (4.8-10.8)
[2023-07-29 11:04] LABS: Alanine Aminotransferase 17 U/L (0-40); Albumin Level 4.1 g/dL (3.5-5.0); Alkaline Phosphatase 75 U/L (39-117); Anion Gap 14 (12-20); Aspartate Amino Transferase 23 U/L (5-37); Bilirubin Total 0.5 mg/dL (0.0-1.0); Blood Urea Nitrogen 16 mg/dL (9-16); Calcium 9.5 mg/dL (8.4-10.2); Carbon Dioxide 28 mmol/L (22-29); Chloride 104 mmol/L (96-108); Cholesterol 223 mg/dL (<200); Estimated Glomerular Filt Rate > 60; Glucose Random 95 mg/dL (60-115); HDL Cholesterol 48 mg/dL (>40); LDL Cholesterol Calculated 154 mg/dL (<100); Potassium 3.7 mmol/L (3.3-5.1); Sodium 142 mmol/L (135-145); Total Protein 7.5 g/dL (6.5-8.0); Triglycerides 108 mg/dL (<150)
[2023-07-29 11:13] LABS: Free T4 (Free Thyroxine) 1.08 ng/dL (0.71-1.85); Thyroid Stimulating Hormone 2.57 uIU/mL (0.32-4.0)
[2023-07-29 11:28] LABS: Folate 13.5 ng/mL (> or = 4.0); Vitamin B12 786 pg/mL (200-900)
== END 2023-07-29 08:22 | disposition home or self-care (01) ==
LOC: HO.HMGCLDS 08:21
PROVIDERS: PCP Internal Medicine; Visit Provider Internal Medicine
DX: E78.00 Pure hypercholesterolemia, unspecified (principal); Z12.5 Encounter for screening for malignant neoplasm of prostate
CPT/HCPCS: 36415; 80053; 80061; 82607; 82746; 84153; 84439; 84443; 85025

== ENCOUNTER 2023-09-23 14:14 | Outpatient (AMB) | payer MEDICARE, SELFPAY ==
--- NOTE | 2023-09-23 14:19 | MHC.OFFVIS ---
Intake Visit Reasons: 1yr follow up/PVR Intake Note: Patient presents today for follow up on: recurrent uti and incomplete bladder emptying Urology Medications: none Blood Thinner: none PVR: 57ml's Chin Strap Maker Required: No Accompanied by: Self / Same As Patient Allergies atorvastatin [Lipitor] Allergy (Intermediate, Verified 09/23/23 14:41) myalgia, dizziness tamsulosin [From Flomax] Adverse Reaction (Verified 09/23/23 14:41) light headed Medication List - Last Reconciled 09/23/23 by JESUS Delaney cholecalciferol (vitamin D3) 25 mcg PO DAILY hydrochlorothiazide 25 mg PO DAILY multivitamin 1 tab PO DAILY HPI Comments Details: Alexandre Loyola is a pleasant 68-year-old male patient of Dr. Dickey. He presents to the office today for follow-up of his recurrent urinary tract infections. In discussion with the patient today he reports since his last office visit here approximately 1 year ago he has had no bothersome urinary issues or concerns. Previous workup has included retroperitoneal ultrasound noting right kidney with no calculi, lesions, and or hydronephrosis noted. Left kidney with no calculi or hydronephrosis. Simple cyst in the mid pole measuring 2 cm for which no imaging follow-up is recommended. The bladder is well distended with 3 diverticuli, largest measuring up to 4.3 cm. Pre void bladder volume is approximately 310 mL. Postvoid bladder volume is approximately 35 mL. Prostate volume 42 mL. In office urinalysis results reviewed with the patient today. PVR 57 mL. Patient denies any bothersome urinary issues or concerns he denies urinary urgency, urinary frequency, incontinence, nocturia, hematuria, dysuria, foul smelling urine, changes to urinary stream, flank pain, fever, and or chills. He is happy with his current voiding parameters. In review of patient's chart it appears PSA 05/15 1.7, 08/16 1.6. He verbalizes he would like to move forward with p.r.n. appointments as he does not feel any bothersome urinary issues or concerns. He reports he follows up with his prostate checks with his PCP. He otherwise offers no other issues or concerns at this time. [facility] Medical History Obesity (BMI 30-39.9) COVID-19 vaccine administered History of renal calculi Fatty liver Cholelithiasis Hypercholesterolemia Hypertension Surgical History H/O colonoscopy History of inguinal hernia repair Family History Father Bladder cancer Hypertension Mother CVD (cardiovascular disease) Social History Housing: House Are you a primary healthcare technician to a significant other at home: No Do you presently have visiting nurse or other home services: No Alcohol intake: never Patient Tobacco Use Status: Never used Tobacco e-Cigarette/Vaping Use: Never Used Second Hand Smoke Exposure: No Current occupational status: retired Cognitive needs: No Hearing needs: No Vision needs: Yes Review of Systems Const All systems reviewed & are unremarkable except as noted in HPI and below Reports no additional complaints Eyes Reports no additional complaints ENT Reports no additional complaints Card Reports no additional complaints Resp Reports no additional complaints GI Reports no additional complaints Reports as per HPI Musc Reports no additional complaints Neuro Reports no additional complaints Psych Reports no additional complaints Endo Reports no additional complaints Ruddy/Lymph Reports no additional complaints Aller/Immun Reports no additional complaints Physical Exam Const General: cooperative, healthy appearing, comfortable, no acute distress, well developed, alert and awake Orientation/consciousness: patient oriented x3 Limitations: no limitations HEENT Head: Yes normal to inspection, Yes normocephalic and Yes atraumatic Ears: hearing grossly normal bilaterally Eyes General: appearance normal, both eyes and all related structures Neck Neck: Yes normal visual inspection and Yes trachea midline Chest Chest palpation & inspection: normal inspection of the chest Resp Effort & Inspection: normal respiratory effort and able to speak in complete sentences Cardio Rate: regular rate GI Inspection: Yes normal to inspection General: Yes no CVA tenderness Back/Spine/Pelvis Back: no CVA tenderness Skin General skin exam: no rashes or lesions noted Neuro General: patient oriented x3 Extrem General: Yes normal to inspection Psych Appearance: grossly normal and well kempt Mental Status: mental status grossly normal Speech and movement: Normal speech and movement present and Clear speech present Affect: normal affect Attitude: cooperative Thought process: Normal thought process present Thought content: Normal thought content present Insight: Fair insight present (Psych) Judgement: Fair judgement present (Psych) Office Procedures Post Void Residual Post Residual Void Post Void Residual (PVR): 57 [id number] Void Residual by ultrasound Results AMB Urinalysis, Automated UA Leukoctes 0 Yaquelin/uL Last Edit by Zolasamantha [employer] Holdingsrandolph on 09/23/23 14:34 UA Nitrite Last Edit by Charity Enginerandolph on 09/23/23 14:34 UA Urobilinogen 0.2 mg/dL Last Edit by [employer] on 09/23/23 14:34 UA Protein 0 mg/dL Last Edit by [employer] on 09/23/23 14:34 UA pH 7.0 Last Edit by [employer] on 09/23/23 14:34 UA Blood 0 Chavez/uL Last Edit by [employer] on 09/23/23 14:34 UA Specific [place] 1.010 Last Edit by [employer] on 09/23/23 14:34 UA Ketone Last Edit by [employer] on 09/23/23 14:34 UA Bilirubin 0 mg/dL Last Edit by [employer] on 09/23/23 14:34 UA Glucose 0 mg/dL Last Edit by [employer] on 09/23/23 14:34 Results Reviewed Results Reviewed: Laboratory Last Values Urine pH (Auto) 7.0 09/23/23 14:25 Specific [place] (Auto) 1.010 09/23/23 14:25 Urine Protein (Auto) 0 mg/dL 09/23/23 14:25 Glucose (UA)(Auto) 0 mg/dL 09/23/23 14:25 Urine Blood (Auto) 0 Chavez/uL 09/23/23 14:25 Urine Bilirubin (Auto) 0 mg/dL 09/23/23 14:25 Urine Urobilinogen (Auto) 0.2 mg/dL 09/23/23 14:25 Leukocyte Esterase (Auto) 0 Yaquelin/uL 09/23/23 14:25 Assessment & Plan Assessment & Plan (1) Recurrent UTI: Code(s): N39.0 - Urinary tract infection, site not specified Category: Medical (2) Incomplete bladder emptying: Code(s): R33.9 - Retention of urine, unspecified Category: Medical (3) Diverticula, bladder: Code(s): N32.3 - Diverticulum of bladder Category: Medical Plan In office urinalysis results reviewed with the patient today. PVR 57 mLs. He reports to be happy with his current voiding parameters. Patient denies any bothersome urinary issues or concerns. He would like to follow-up p.r.n. Patient reports he will follow-up PSA and CONSTANCE with PCP as he has been. P.r.n. Orders: Orders AMB Urinalysis Automated Today Z13.9 - Encounter for screening, unspecified AMB Post Void Residual by ultrasound Today N39.0 - Urinary tract infection, site not specified Patient Instructions: The patient had an opportunity to ask questions regarding the treatment plan. All questions were answered. Physical exam, labs, and imaging were discussed and reviewed in detail. As well as risks, benefits, and discussion of treatment choices. No major barriers to understanding were identified. The patient expressed understanding and agreement with the above treatment plan. The patient was made aware they should contact our office by phone for worsening of their current condition, the appearance of new symptoms, or with any questions or concerns. Compliance is encouraged with any medications and follow up testing that is ordered. It is a privilege to be allowed the opportunity to participate in? your urological care.? Again, if you have any questions or concerns If you have any questions or concerns please do not hesitate to contact me. The office is [phone]. This note is constructed using voice recognition software. While every effort has been made to ensure accuracy ob gyn physician assistant errors may have been included. Yours sincerely, JESUS Delaney Coding Level of Care Code Est Pt Level 3 (75634) Complex EM visit Add On G2211 Diagnoses Recurrent UTI N39.0 Incomplete bladder emptying R33.9 Diverticula, bladder N32.3 CPT Codes Post Residual Void - PVR CPT Code: 75031-Qamt Void Residual by ultrasound ([id number])
== END 2023-09-23 14:39 | disposition home or self-care (01) ==
PROVIDERS: PCP Internal Medicine; Visit Provider Nurse Practitioner Family
DX: N39.0 Urinary tract infection, site not specified (principal); R33.9 Retention of urine, unspecified; N32.3 Diverticulum of bladder; Z13.9 Encounter for screening, unspecified
CPT/HCPCS: 99213; G2211

== ENCOUNTER → 2023-09-23 14:14 | Outpatient (BNVA) | payer MEDICARE, SELFPAY | PROVIDERS: PCP Internal Medicine; Visit Provider Nurse Practitioner Family | DX: N39.0 Urinary tract infection, site not specified (principal); R33.9 Retention of urine, unspecified; N32.3 Diverticulum of bladder | CPT/HCPCS: 51798; 81003; 99212 ==

== ENCOUNTER 2024-05-26 12:07 | Outpatient (AMB) | payer MEDICARE, SELFPAY ==
--- NOTE | 2024-05-26 12:37 | A.OFFPC_ITS ---
Vital Signs 05/26/24 12:39 Height 6 ft 1 in Weight 210 lb 2 oz BMI 27.7 BP 140/70 H Blood Pressure Location Lt brachial Position Sitting Pulse 78 Pulse Source Pulse Oximeter Temp 97.3 F Temp Source Temporal Artery Scan Pulse Oximetry (%) 97 Oxygen Delivery Method Room Air Intake Visit Reasons: Annual Exam Intake Note: Patient is here today for a physical. Measurement And Verification Engineer Required: No Scenic Arts Supervisor: Not Required per policy Accompanied by: Self / Same As Patient Allergies atorvastatin [Lipitor] Allergy (Intermediate, Verified 05/26/24 12:38) myalgia, dizziness tamsulosin [From Flomax] Adverse Reaction (Verified 05/26/24 12:38) light headed Medication List - Last Reconciled 05/26/24 by Yaneth Dickey MD cholecalciferol (vitamin D3) 25 mcg PO DAILY multivitamin 1 tab PO DAILY Tobacco use date assessed: 05/26/24 Fall risk assessment: No Falls in past year Last assessed Fall Risk: 05/26/24 Dental Screening Dental Screen Date: 05/26/24 Did you have a dental visit in the last 12 months?: Yes Did you have a dental problem in the last 6 months where you did not have access to dental care?: No Was dental information given to patient?: Patient has dentist HPI Annual Exam HPI Details BP at home is good [facility] Medical History Obesity (BMI 30-39.9) COVID-19 vaccine administered History of renal calculi Fatty liver Cholelithiasis Hypercholesterolemia Hypertension Surgical History H/O colonoscopy History of inguinal hernia repair Family History (Updated 05/26/24 @ 12:37 by HONG Kelsey) Father Bladder cancer Hypertension Mother CVD (cardiovascular disease) Social History Housing: House Are you a primary assisted living care manager to a significant other at home: No Do you presently have visiting nurse or other home services: No Alcohol intake: never Patient Tobacco Use Status: Never used Tobacco e-Cigarette/Vaping Use: Never Used Second Hand Smoke Exposure: No service: No Current occupational status: retired Cognitive needs: No Hearing needs: No Vision needs: Yes (Glasses) Questionnaire PHQ-9 Over the last 2 weeks, how often have you been bothered by any of the following problems? 1. Little interest or pleasure in doing things: not at all 2. Feeling down, depressed, or hopeless: not at all 3. Trouble falling or staying asleep, or sleeping too much: not at all 4. Feeling tired or having little energy: not at all 5. Poor appetite or overeating: not at all 6. Feeling bad about yourself - or that you are a failure or have let yourself or your family down: not at all 7. Trouble concentrating on things, such as reading the newspaper or watching television: not at all 8. Moving or speaking so slowly that other people could have noticed. Or the opposite - being so fidgety or restless that you have been moving around a lot more than usual: not at all 9. Thoughts that you would be better off or of hurting yourself in some way: not at all Total score: 0 Depression Screening Interpretation: Negative Depression Screening Done: Yes Source: Developed by Drs. Jeff Jackson, Kimberly Ramos, Matheus Flores and colleagues, with an educational esperanza from [employer]. Thrive Questionnaire Date Thrive assessed: 05/20/24 I am a: Patient What is your living situation today?: I have a steady place to live Within the past 12 months, did the food you bought not last and you didn't have the money to get more?: Never true Within the past 12 months, did you worry whether your food would run out before you got money to buy more?: Never true Do you have trouble paying for medicines?: No Do you have trouble getting transportation to medical appointments?: No Do you have trouble paying your heating and electricity bill?: No Do you have trouble taking care of your child, family member or friend?: No Do you have trouble with day-to-day activities such as bathing, preparing meals, shopping, managing finances, etc.?: No Are you currently unemployed and looking for a job?: No Are you interested in more education?: No Please select the resources that you would like help with: None Currently or been in a relationship where the following occur: No concerns reported THRIVE Score: 0 AUDIT C Alcohol Use Questionnaire (AUDIT-C) 1. How often do you have a drink containing alcohol?: Never 3. How often do you have six or more drinks on one occasion?: Never Total Score: 0 HANNY-7 AMB Questionnaire HANNY-7 Date HANNY - 7 assessed: 05/26/24 Feeling nervous, anxious, or on edge: 0 = Not at all Not being able to stop or control worryin = Not at all Worrying too much about different things: 0 = Not at all Trouble relaxin = Not at all Being so restless that it is hard to sit still: 0 = Not at all Becoming easily annoyed or irritable: 0 = Not at all Feeling afraid as if something awful might happen: 0 = Not at all Total HANNY-7 score (0-4 normal; 5-9 mild; 10-14 moderate; 15-21 severe): 0 Source: Developed by Drs. Jeff Jackson, Kimberly Ramos, Matheus Flores and colleagues, with an educational esperanza from [employer]. Review of Systems Const Denies poor appetite and Denies weakness Eyes Denies no additional complaints ENT Reports Normal hearing present, Denies dizziness, Denies nasal congestion, Denies tinnitus and Denies sore throat Card Denies chest pain, Denies syncope, Denies rapid heart rate and Denies dyspnea Resp Denies cough and Denies dyspnea GI Denies change in stool character, Reports constipation, Denies diarrhea, Denies nausea and Denies vomiting Denies dysuria and Denies urinary frequency Neuro Reports Normal hearing present, Denies confusion, Denies dizziness, Denies syncope and Denies weakness Psych Denies confusion Physical exam (Primary Care) Tobacco/Smoking Status: Tobacco use Status Tobacco use date assessed 05/26/23 05/26/23 12:49 Patient Tobacco Use Status Never used Tobacco 05/26/23 12:49 e-Cigarette/Vaping Use Never Used 05/26/23 12:49 Depression Screening Interpretation: Negative Thrive Assessment: Date of Thrive Assessment Date Thrive assessed 05/20/24 05/20/24 09:06 Currently or been in a relationship where the following occur: No concerns reported Const General: No confusion Orientation/consciousness: No confusion HENMT Head: Yes normocephalic Ears: external ears normal and TM's normal bilaterally Face and sinus: Yes normal facial exam Mouth: moist mucous membranes Throat: Yes tonsils normal Eyes Conjunctivae: conjunctivae normal Pupils: Equal, round and reactive pupils present and Pupil accommodation reflex normal Direct Ophthalmoscopy: normal light reflex Neck Neck: No lymphadenopathy Thyroid: Thyroid normal Chest Chest palpation & inspection: normal inspection of the chest Resp Effort & Inspection: normal respiratory effort and no audible wheezes Auscultation: clear to auscultation bilaterally, no crackles, no wheezes and lung sounds not diminished Cardio Rate: regular rate Rhythm: regular rhythm Peripheral pulses: radial pulses present and dorsalis pedis present GI Palpation (GI): no masses Auscultation: normal bowel sounds and normoactive bowel sounds Rectal Exam - Male: Yes deferred Skin General skin exam: no rashes or lesions noted Rashes: no rashes Neuro General: No confusion Cranial nerves: Yes Equal, round and reactive pupils present and Yes Normal hearing present Cognition (Neuro): normal cognition Gait exam (Neuro): Normal gait present Motor exam (neuro): 5/5 motor strength present throughout Deep tendon reflexes (DTR's): Right brachioradialis reflex intensity grade: 2+, Left brachioradialis reflex intensity grade: 2+, Right patellar reflex intensity grade: 2+ and Left patellar reflex intensity grade: 2+ Extrem General: No edema Coding Level of Care Code Est Pt Prev Care >65y(54317) Diagnoses Annual physical exam Z00.00 Essential hypertension I10 Hypertension type: essential hypertension Hypercholesterolemia E78.00 Overweight (BMI 25.0-29.9) E66.3 BPH (benign prostatic hyperplasia) N40.0 Assessment & Plan Assessment & Plan (1) Annual physical exam: Code(s): Z00.00 - Encounter for general adult medical examination without abnormal findings Category: Medical Plan: Patient is advised to eat healthy, keep well hydrated, keep active and have adequate sleep. (2) Hypertension: Code(s): I10 - Essential (primary) hypertension Category: Medical Qualifiers: Hypertension type: essential hypertension Qualified Code(s): I10 - Essential (primary) hypertension Plan: Continue with blood pressure medication. Decrease salt intake and exercise on hydrochlorothiazide (3) Hypercholesterolemia: Code(s): E78.00 - Pure hypercholesterolemia, unspecified Category: Medical Plan: Avoid fried foods, chicken skin, eggs, butter margarine, pastries and meat. Be it pork or beef they have a lot of cholesterol will need to repeat blood work (4) Overweight (BMI 25.0-29.9): Code(s): E66.3 - Overweight Category: Medical Plan: Continue with diet and exercise noted weight loss (5) BPH (benign prostatic hyperplasia): Code(s): N40.0 - Benign prostatic hyperplasia without lower urinary tract symptoms Category: Medical Plan: Stable continue to follow-up with urology Plan History of Present Illness The patient is a 69-year-old male presenting with an annual physical examination due to concerns about recent weight loss, along with ongoing management of hypertension and hypercholesterolemia. Notably, the patient reports a loss of 15 pounds over the past week, with an additional 8 pounds since May 2023, despite no significant changes in dietary habits or physical activity. His current weight stands at 210 pounds. This patient has a longstanding history of essential hypertension and hypercholesterolemia, and he is under regular medical supervision for these conditions. He also has a history of Benign Prostatic Hyperplasia (BPH) with follow-up from urology for issues related to incomplete bladder emptying. An as sessment of his prostate size noted an enlargement at 42cc compared to the typical range of 15-25cc. Recent laboratory evaluations indicated normal renal and liver functions and electrolytes, with no signs of anemia but showed an elevated LDL cholesterol level of 154 mg/dL. The patient denies experiencing recent dizziness, nausea, vomiting, swallowing difficulties or chest discomfort. He reports no recent changes in prescription medications and maintains his history free from alcohol or tobacco use. His vaccinations against shingles and pneumonia are current. Health Maintenance - Routine assessment of hypertension, hypercholesterolemia, and weight management. - Urology follow-ups are ongoing for Benign Prostatic Hyperplasia. - Patient was last seen for a colonoscopy in July 2020. - Vaccines include shingles, pneumonia, and routine updates. - Recent lab work noted normal renal function, normal liver function, no anemia, and elevated LDL cholesterol. Social History - Denies alcohol consumption. - Non-smoker, has never smoked cigarettes. - Regular exercise includes dog walking at least eight times daily. - Reports no significant dietary changes contributing to weight loss. Review of Systems - Constitutional: Denies dizziness, fever, or fatigue. - Cardiovascular: Denies chest pain or discomfort. - Respiratory: Denies shortness of breath. - Gastrointestinal: Denies nausea, vomiting, or swallowing problems. - Genitourinary: Denies difficulty in urination apart from nighttime frequency once per night. - Musculoskeletal: Denies joint pain or stiffness. - Neurological: Denies episodes of passing out. - Ophthalmologic: Denies vision problems other than early cataracts. Physical Exam General: Cooperative, healthy appearing, comfortable, no acute distress and well developed Orientation: Patient oriented x3 Limitations: No limitations Head: Normal to inspection Ears: Hearing grossly normal bilaterally Nose: Normal external nose present Face and sinus: Normal facial exam Eyes: Appearance normal, both eyes and all related structures. No cataracts or anything significant noted. Neck: Normal visual inspection and Yes full ROM Respiratory: Normal respiratory effort and able to speak in complete sentences. Clear to auscultation bilaterally Cardiovascular: Regular rate and rhythm. Normal S1 and S2 GI: Normal to inspection. Soft to palpation and nontender Skin: No rashes or lesions noted Neuro: Patient oriented x3 Extremities: Normal to inspection Results - Blood Work (July 2023): Normal renal function, liver function normal, normal electrolytes, elevated LDL cholesterol at 154 mg/dL, no anemia. Plan For hypertension, I plan to monitor blood pressure levels and consider adjusting the current medication regimen if necessary. The patient's hypercholesterolemia will be managed with dietary modification and potential repeat cholesterol testing, noting genetic predisposition. Weight loss will be observed for any patterns and underlying causes. Regular urology consultations will continue for Benign Prostatic Hyperplasia. The patient will maintain current vaccinations without delay, and any changes in laboratory work will be assessed at follow-up intervals. Patient was informed and verbally consented to the use of an ambient scribe for clinic note documentation during this visit. Discussion Notes During our discussion, I clarified the patient's ongoing management plans for essential hypertension and hypercholesterolemia, emphasizing the importance of lifestyle modifications including diet and exercise. I highlighted the role of genetic predispositions in cholesterol management. We reviewed the rationale and approach for monitoring unexplained weight loss. Discussion also included continued surveillance for Benign Prostatic Hyperplasia with routine urological follow-ups. The patient expressed understanding of the potential impacts of his family history on his current health. Immunizations were verified as up to date, and the completion of recommended lab tests was emphasized. Patient Instructions - Continue medication as prescribed for hypertension. - Monitor and record blood pressure regularly. - Follow a healthy diet and exercise plan. - Repeat blood work to assess cholesterol in the future. - Stay vigilant for any further unexplained weight loss. - Continue following up with urology for prostate health. - Ensure vaccinations remain up to date. - Drink sufficient water daily to aid kidney function. - Seek medical care if you experience significant new symptoms or concerns. Orders: Orders Free T4 (Free Thyroxine) Today E78.00 - Pure hypercholesterolemia, unspecified Thyroid Stimulating Hormone Today E78.00 - Pure hypercholesterolemia, unspecified Vitamin B12 and Folate Today E78.00 - Pure hypercholesterolemia, unspecified Prostate Specific Antigen Scr Today E78.00 - Pure hypercholesterolemia, unspecified Complete Blood Count Auto Diff Today E78.00 - Pure hypercholesterolemia, unspecified Comprehensive Met. Panel Today E78.00 - Pure hypercholesterolemia, unspecified Lipid Panel Today E78.00 - Pure hypercholesterolemia, unspecified
[2024-05-26 12:39] VITALS: BP 140/70; PULSE 78; TEMP 36.3; O2SAT 97; BMI 27.7
--- OUTSIDE RECORDS SUMMARY | 2024-05-26 13:22 | XMS_ITS | Clinical Summary ---
Author Organization [facility] [facility] [employer] Address [address] [place] [address] Care Team Providers Care Refrigerating Oiler Name Role Phone Yaneth Dickey MD Primary Care Provider [phone] Allergies Active Allergy Reactions Criticality Noted Date Comments Atorvastatin 06/19/2018 Medications hydroCHLOROthiazid e (HYDRODIURIL) 25 MG tablet 06/18/2018 Active Social History Tobacco Use Types Packs/Day Years Used Date Smoking Tobacco: Never Smokeless Tobacco: Never Sex and Gender Information Value Date Recorded Sex Assigned at Not on file Legal Sex Male 9:06 AM EDT Gender Identity Not on file Sexual Orientation Not on file Last Filed Vital Signs Vital Sign Reading Time Taken Comments Blood Pressure 152/82 08/04/2018 9:43 AM EDT Pulse 77 08/04/2018 9:43 AM EDT Temperature 36.3 ??C (97.4 ??F) 08/04/2018 9:43 AM ED T Respiratory Rate 12 08/04/2018 9:43 AM EDT Oxygen Saturation 98% 08/04/2018 9:43 AM EDT Inhaled Oxygen Concentration - - Weight 107 kg (235 lb) 08/04/2018 9:43 AM EDT Height 185.4 cm (6' 1 ) 08/04/2018 9:43 AM EDT Body Mass Index 31 08/04/2018 9:43 AM EDT Plan of Treatment Health Maintenance Due Date Last Done Comments Colorectal Cancer: COLONOSCO PY Screening every 10 yrs (or Modifier) 1954 Depression: Screening Annual ly using PHQ-2/9 in Adults 18 yrs or above (or HM Modifier)([facility]) 01/02/1972 Hepatitis C Virus Infection in Adolescents and Adults: Screening (or Modifier) ([facility]) 01/02/1972 SDOH Screening Reminder: Yris gutierrez for all adults ([facility]) 01/02/1972 Tobacco Smoking Cessation: i n Adults excluding Women: Behavioral and Pharmacotherapy Interventions ([facility]) 01/02/1972 DTaP/Tdap/Td Vaccines ([facility]) (1 - Tdap) 1973 Lipid Screening: Every 5 yrs for Men aged 35+ (or HM Modifier) ([facility]) 1990 Colorectal Cancer Screening 45 -75 Yrs (or HM Modifier ) 1999 Colorectal Cancer: FLEXIBLE SIGMOIDOSCOPY Screening every 5 yrs 1999 Colorectal Cancer: Fecal Imm unochemical Test (FIT) Annually [facility] 1999 Colorectal Cancer: High-sens itivity gFOBT Screening Annually [facility] 1999 Colorectal Cancer: Stool Col oguard Screening every 3 yrs 1999 Colorectal Cancer:CT Colonography Screening every 5 yr s 1999 Pneumococcal Vaccination Scr eening: Patients 50+ yrs of age ([facility]) (1 of 1 - PCV) 01/02/2004 Zoster/Shingles Vaccine Seri es Screening: Adults aged 18+ yrs (or HM Modifiers)([facility]) (1 of 2) 01/02/2004 Flu Vaccination: Ages 65+: Y early High Dose Recommended (or Modifier)([facility]) 09/24/2023 COVID-19 Vaccine Screening: Initial Series and Booster Status ([facility]) ( - 2023-25 season) 2023 RSV Vaccines (1 - 1-dose 75+ series) 2029 [employer] Devices Not on file Insurance [facility] [employer] Care Teams Refrigerating Oiler Relationship Specialty Start Date End Date Noble, Yaneth Maldonado MD [address] [place] [address] PCP - Register Repairer 06/19/18
--- OUTSIDE RECORDS SUMMARY | 2024-05-26 13:22 | XMS_ITS | Patient Health Record ---
Author Organization [facility] Address [address] [place] [address] Care Team Providers Care Registered Public Health Nurse Name Role Phone Po Yaneth KRAMER Primary Care Provider Terell More Jr Unavailable Allergies Allergen (clinical drug ingredient) Drug/Non Drug Allergy documented on EMR Reaction Allergy Type Onset Date Status atorvastatin Atorvastatin Calcium Unknown Drug Allergy Active Reason For Referral No Information Medications Medication SIG (Take, Route, Frequency, Duration) Notes Start Date End Date Status hydroCHLOROthiazide 25 MG 1 tablet in th e morning Orally Once a day Active MiraLax (colon prep) 8.3 oun ce ((238) grams mixed with Gatorade or Crystal Light orally begin at 5:00 p.m. the day before the procedure for 1 day 07/13/2020 Active Vitamin D Active Immunizations Vaccine Route Administration Date Status Comme nts Influenza Unknown 11/24/2019 Administered Social History Tobacco Use: Social History Observation Description Date Details (start date - stop date) Never Smoker NA - NA Tobacco Use/Smoking Question Answer Notes Patient is a nonsmoker Alcohol Screen Question Answer Notes Did you have a drink containing alcohol in the p ast year? No Points 0 Interpretation Negative Problems Problem Type SNOMED Code ICD Code Onset Dates Problem Status W/U Status Risk Notes Problem 257180361 Colon cancer screening (Z12.11) Active confirmed Problem 184960711 Encounter for other preprocedural examination (Z01.818) Active confirmed Problem [id number] [facility] current use of diuretic (Z79.899) Active confirmed Plan Of Treatment Future Test Test Name Order Date COLONOSCOPY 07/13/2020 Insurance Providers Payer Name Payer Address Payer Phone Subscriber Number Group Number Insured Name Patient Relationship to Insured Coverage Start Date Coverage End Date [facility] [address] [place] [phone] [id number] JACQUE RANDHAWA Self - patient is the insured Medical (General) History Medical History History ICD Code hypertension elevated cholesterol nephrolithiasis fatty liver Surgical History Surgery Date(Month/Year) hernia repair L inguinal
== END 2024-05-26 13:06 | disposition home or self-care (01) ==
LOC: HO.HMCH 12:08
PROVIDERS: PCP Internal Medicine; Visit Provider Internal Medicine
DX: Z00.00 Encounter for general adult medical examination without abnormal findings (principal); I10 Essential (primary) hypertension; E78.00 Pure hypercholesterolemia, unspecified; E66.3 Overweight; N40.0 Benign prostatic hyperplasia without lower urinary tract symptoms

== ENCOUNTER → 2024-05-26 12:07 | Outpatient (BNVA) | payer MEDICARE, SELFPAY | PROVIDERS: PCP Internal Medicine; Visit Provider Internal Medicine | DX: Z00.00 Encounter for general adult medical examination without abnormal findings (principal); I10 Essential (primary) hypertension; E78.00 Pure hypercholesterolemia, unspecified; E66.3 Overweight; N40.0 Benign prostatic hyperplasia without lower urinary tract symptoms; Z68.27 Body mass index [BMI] 27.0-27.9, adult | CPT/HCPCS: 96127; 99397 ==

== ENCOUNTER 2024-05-31 09:45 | Outpatient (REF) | payer MEDICARE, SELFPAY ==
--- OUTSIDE RECORDS SUMMARY | 2024-05-31 11:11 | XMS_ITS | Patient Health Record ---
Author Organization [facility] Address [address] [place] [address] Care Team Providers Care Used Car Make Ready Worker Name Role Phone Po Yaneth KRAMER Primary Care Provider Terell More Jr Unavailable [phone] Allergies Allergen (clinical drug ingredient) Drug/Non Drug [...] Problem Status W/U Status Risk Notes Problem 142375151 Colon cancer screening (Z12.11) Active confirmed Problem 891969917 Encounter for other preprocedural examination (Z01.818) Active confirmed Problem [id number] nursing home current use of diuretic (Z79.899) Active confirmed Plan Of Treatment Future Test Test Name Order Date COLONOSCOPY 07/13/2020 Insurance Providers Payer Name Payer Address Payer Phone Subscriber Number Group Number Insured Name Patient Relationship to Insured Coverage Start Date Coverage End Date [facility] [address] [place] [place] [phone] [id number] JACQUE RANDHAWA Self - patient is the insured Medical (General) History Medical History History ICD Code hypertension elevated cholesterol nephrolithiasis fatty liver Surgical History Surgery Date(Month/Year) hernia repair L inguinal
--- OUTSIDE RECORDS SUMMARY | 2024-05-31 11:11 | XMS_ITS | Clinical Summary ---
Author Organization [facility] [employer] [facility] [place] [employer] Address [address] [place] [address] Care Team Providers Care Land Surveying Manager Name Role Phone Yaneth Dickey MD Primary Care Provider [phone] Allergies Active Allergy Reactions Criticality Noted Date [...] Adults 18 yrs or above (or HM Modifier)([facility]) 01/02/1972 Hepatitis C Virus Infection in Adolescents and Adults: Screening (or Modifier) ([facility]) 01/02/1972 SDOH Screening Reminder: Yris gutierrez for all adults ([facility]) 01/02/1972 Tobacco Smoking Cessation: i n Adults excluding Women: Behavioral and Pharmacotherapy Interventions ([facility]) 01/02/1972 DTaP/Tdap/Td Vaccines ([facility]) (1 - Tdap) 1973 Lipid Screening: Every 5 yrs for Men aged 35+ (or HM Modifier) ([facility]) 1990 Colorectal Cancer Screening 45 -75 Yrs (or HM Modifier ) 1999 Colorectal Cancer: FLEXIBLE SIGMOIDOSCOPY Screening every 5 yrs 1999 Colorectal Cancer: Fecal Imm unochemical Test (FIT) Annually [facility] 1999 Colorectal Cancer: High-sens itivity gFOBT Screening Annually [facility] 1999 Colorectal Cancer: Stool Col oguard Screening every 3 yrs 1999 Colorectal Cancer:CT Colonography Screening every 5 yr s 1999 Pneumococcal Vaccination Scr eening: Patients 50+ yrs of age ([facility]) (1 of 1 - PCV) 01/02/2004 Zoster/Shingles Vaccine Seri es Screening: Adults aged 18+ yrs (or HM Modifiers)([facility]) (1 of 2) 01/02/2004 Flu Vaccination: Ages 65+: Y early High Dose Recommended (or Modifier)([facility]) 09/24/2023 COVID-19 Vaccine Screening: Initial Series and Booster Status ([facility]) ( - 2023-25 season) 2023 RSV Vaccines (1 - 1-dose 75+ series) 2029 [employer] Not on file Insurance [facility] [employer] Care Teams Land Surveying Manager Relationship Specialty Start Date End Date Noble, Yaneth Maldonado MD [address] [place] [id number] PCP - [employer] Former 06/19/18
[2024-05-31 13:10] LABS: MANUAL DIFF FLAG NO
[2024-05-31 13:35] LABS: Basophils Absolute Auto 0.1 X10*3/uL (0.0-0.2); Basophils Percent Auto 0.9 % (0-2); Eosinophils Absolute Auto 0.2 X10*3/uL (0.0-0.4); Eosinophils Percent Auto 2.8 % (0-4); Hematocrit 44.5 % (42.0-52.0); Hemoglobin 15.3 g/dl (14.0-18.0); Imm Gran Abs Auto 0.02 X10*3/uL (0.00-0.03); Imm Gran Pct Auto 0.3 % (0.0-0.4); Lymphocytes Absolute Auto 1.5 X10*3/uL (1.2-4.9); Lymphocytes Percent Auto 21.1 % (20-40); Mean Corpuscular HGB Conc 34.4 g/dl (31.0-36.0); Mean Corpuscular Hemoglobin 30.5 pg (27.0-33.0); Mean Corpuscular Volume 88.8 fL (80.0-98.0); Mean Platelet Volume 12.4 fL (9.4-12.4); Monocytes Absolute Auto 0.5 X10*3/uL (0.1-1.2); Monocytes Percent Auto 7.7 % (2-11); Neutrophils Absolute Auto 4.6 x10*3/uL (2.0-8.3); Neutrophils Percent Auto 67.2 % (45-73); Platelet Count 215 X10*3/uL (160-400); Red Blood Count 5.01 X10*6/uL (4.60-5.80); Red Cell Distribution Width 14.5 % (11.0-16.0); White Blood Count 6.9 X10*3/uL (4.8-10.8)
[2024-05-31 14:30] LABS: Alanine Aminotransferase 16 U/L (0-40); Alkaline Phosphatase 79 U/L (39-117); Anion Gap 11 (12-20); Aspartate Amino Transferase 25 U/L (5-37); Bilirubin Total 0.5 mg/dL (0.0-1.0); Blood Urea Nitrogen 19 mg/dL (9-16); Calcium 9.4 mg/dL (8.4-10.2); Carbon Dioxide 27 mmol/L (22-29); Chloride 106 mmol/L (96-108); Cholesterol 214 mg/dL (<200); Estimated Glomerular Filt Rate > 60; Glucose Random 88 mg/dL (60-115); HDL Cholesterol 45 mg/dL (>40); LDL Cholesterol Calculated 153 mg/dL (<100); Potassium 3.6 mmol/L (3.3-5.1); Sodium 140 mmol/L (135-145); Total Protein 7.3 g/dL (6.5-8.0); Triglycerides 81 mg/dL (<150)
[2024-05-31 14:36] LABS: Folate 16.1 ng/mL (> or = 4.0); Prostate Specific Antigen Scr 2.04 ng/mL (<0.05-4.0); Vitamin B12 973 pg/mL (200-900)
[2024-05-31 14:50] LABS: Free T4 (Free Thyroxine) 1.13 ng/dL (0.71-1.85); Thyroid Stimulating Hormone 2.63 uIU/mL (0.32-4.0)
== END 2024-05-31 09:46 | disposition home or self-care (01) ==
LOC: HO.HMGCLDS 09:45
PROVIDERS: PCP Internal Medicine; Visit Provider Internal Medicine
DX: E78.00 Pure hypercholesterolemia, unspecified (principal); Z12.5 Encounter for screening for malignant neoplasm of prostate
CPT/HCPCS: 36415; 80053; 80061; 82607; 82746; 84153; 84439; 84443; 85025